=== PATIENT | female | born 1975 | race Caucasian/White ===

== ENCOUNTER 2017-08-15 12:00 | Emergency (ER) | payer BC ==
[~2017-08-15] VITALS: Ht 154.9 cm; Wt 77.1 kg
[2017-08-15] MEDS ORDERED: ENAL10TA PO (12:16)
[2017-08-15] MEDS ORDERED: LABE200T PO (12:16)
--- NOTE | 2017-08-15 12:35 | NUR ---
PT IS IN THE ROOM #1B. DR CARMONA EVALAUTED THE PT.
[2017-08-15 12:43] LABS: BASOPHILS # (AUTO) 0.1 K/uL (0.0-8.0); BASOPHILS % (AUTO) 0.8 % (0.0-2.0); EOSINOPHILS # (AUTO) 0.2 K/uL (0.0-0.7); EOSINOPHILS % (AUTO) 2.2 % (0.0-7.0); HEMATOCRIT 39.7 % (31.2-41.9); HEMOGLOBIN 13.5 g/dL (10.9-14.3); LYMPHOCYTES % (AUTO) 35.3 % (20.5-51.5); MEAN CORPUSCULAR HEMOGLOBIN 28.8 uug (24.7-32.8); MEAN CORPUSCULAR HGB CONC 34 g/dL (32.3-35.6); MONOCYTES # (AUTO) 0.3 K/uL (2.0-10.0); MONOCYTES % (AUTO) 3.9 % (0.0-11.0); NEUTROPHILS # (AUTO) 4.9 K/uL (1.8-8.9); NEUTROPHILS % (AUTO) 57.8 % (38.5-71.5); PLATELET COUNT (AUTO) 245 K/uL (179-408); RED BLOOD CELL COUNT(AUTO) 4.67 MIL/uL (3.63-4.92); WHITE BLOOD COUNT (AUTO) 8.5 K/uL (3.8-11.8)
[2017-08-15 12:50] LABS: CREATININE 0.7 mg/dL (0.6-1.3)
[2017-08-15 12:56] LABS: BILIRUBIN,DIRECT 0.1 mg/dL (0.0-0.2); BILIRUBIN,TOTAL 0.5 mg/dL (0.2-1.0); TOTAL PROTEIN, SERUM 7.2 g/dL (6.4-8.2)
[2017-08-15 13:35] VITALS: BP 125/76
--- NOTE | 2017-08-15 13:35 | NUR ---
PT WAS D/C TO HOME. D/C INSTRUCTIONS GIVEN TO THE PT.
== END 2017-08-15 13:36 | disposition home or self-care (01) ==
LOC: ER 12:04
DX: R55 Syncope and collapse (principal); I10 Essential (primary) hypertension; I49.9 Cardiac arrhythmia, unspecified; R41.3 Other amnesia
CPT/HCPCS: 36415; 71010; 80048; 80076; 84484; 85025; 93005; 99285; A4663; 70030-TC

== ENCOUNTER 2017-10-20 02:05 | Emergency (ER) | payer BC ==
[~2017-10-20] VITALS: Ht 154.9 cm; Wt 77.1 kg
[~2017-10-20 02:05] MED LIST: ENAL10TA PO; LABE200T PO
--- NOTE | 2017-10-20 02:26 | NUR ---
Dr. Lockhart at bedside for MSE.
[2017-10-20] MEDS ORDERED: ALBUTEROL SULFATE 2.5 MG/3 ML NEBU NEB ONE (02:30)
[2017-10-20] MEDS ORDERED: ALBUTEROL SULFATE 2.5 MG/3 ML NEBU ONE (02:54)
[2017-10-20] MEDS ORDERED: PANTOPRAZOLE SODIUM 40 MG TABLET.DR PO ONE ×2 (03:00→03:17)
[2017-10-20] MEDS ORDERED: MAG HYDROX/AL HYDROX/SIMETH 30 ML LIQUID UDC PO ONE (03:00)
--- NOTE | 2017-10-20 03:11 | NUR ---
Pt c/o chest burning, pt medicated for discomfort, will monitor for effects of medication. EKG obtained and given to MD. Pt resting in position of comfort for self. No complaints at this time.
[2017-10-20] MEDS ORDERED: MAG HYDROX/AL HYDROX/SIMETH 30 ML LIQUID UDC ONE (03:17)
--- NOTE | 2017-10-20 04:26 | NUR ---
Pt stable for discharge per MD. Pt given ACI. Pt verbalized understanding of dc instructions. Pt ambulated out of ER with steady gait,
[2017-10-20 04:28] VITALS: BP 110/62
== END 2017-10-20 04:29 | disposition home or self-care (01) ==
LOC: ER 02:05
DX: J20.8 Acute bronchitis due to other specified organisms (principal); I10 Essential (primary) hypertension; M54.9 Dorsalgia, unspecified
CPT/HCPCS: 71045; 93005; A4663

== ENCOUNTER 2018-03-23 11:38 | Emergency (ER) | payer BC ==
[~2018-03-23] VITALS: Ht 154.9 cm; Wt 77.1 kg
--- NOTE | 2018-03-23 12:08 | NUR ---
PATIENT WAS SEEN BY DR POTTS FOR C/O PAIN. DC, RX (INCLUDING PRECAUTIONS) AND FOLLOW UP INSTRUCTIONS GIVEN AND EXPLAINED TO PATIENT WHO STATES SHE UNDERSTANDS ALL INSTRUCTIONS.
== END 2018-03-23 12:11 | disposition home or self-care (01) ==
LOC: ER 11:40
DX: M54.12 Radiculopathy, cervical region (principal); I10 Essential (primary) hypertension; Z79.899 Other long term (current) drug therapy
CPT/HCPCS: 99283; A4663

== ENCOUNTER 2018-06-04 09:27 | Emergency (ER) | payer BC ==
[~2018-06-04] VITALS: Ht 154.9 cm; Wt 77.1 kg
[~2018-06-04 09:27] MED LIST changes: -LABE200T PO; +LABE200T5 PO
[2018-06-04] MEDS ORDERED: ONDANSETRON 4 MG/2 ML VIAL ONE ×3 (10:02→13:31)
[2018-06-04] MEDS: IV NORMAL SALINE 1000 ML BAG IV ONE (10:03)
[2018-06-04] MEDS: ONDANSETRON 4 MG/2 ML VIAL IV ONE ×2 (10:03→14:38)
[2018-06-04 10:14] LABS: BASOPHILS % (AUTO) 0.3 % (0.0-2.0); HEMATOCRIT 42.4 % (31.2-41.9); HEMOGLOBIN 14.6 g/dL (10.9-14.3); LYMPHOCYTES # (AUTO) 0.7 K/uL (20.0-40.0); LYMPHOCYTES % (AUTO) 6.8 % (20.5-51.5); MEAN CORPUSCULAR HEMOGLOBIN 28.7 uug (24.7-32.8); MEAN CORPUSCULAR HGB CONC 34 g/dL (32.3-35.6); MEAN CORPUSCULAR VOLUME 83.2 fL (75.5-95.3); MONOCYTES # (AUTO) 0.1 K/uL (2.0-10.0); MONOCYTES % (AUTO) 1.4 % (0.0-11.0); NEUTROPHILS # (AUTO) 8.8 K/uL (1.8-8.9); NEUTROPHILS % (AUTO) 91.5 % (38.5-71.5); PLATELET COUNT (AUTO) 263 K/uL (179-408); RED BLOOD CELL COUNT(AUTO) 5.09 MIL/uL (3.63-4.92); WHITE BLOOD COUNT (AUTO) 9.6 K/uL (3.8-11.8)
[2018-06-04 10:20] LABS: CREATININE 0.7 mg/dL (0.6-1.3); POTASSIUM 3.2 mmol/L (3.5-5.1)
[2018-06-04 10:31] LABS: BILIRUBIN,DIRECT 0.1 mg/dL (0.0-0.2); BILIRUBIN,TOTAL 0.7 mg/dL (0.2-1.0); TOTAL PROTEIN, SERUM 7.6 g/dL (6.4-8.2)
[2018-06-04] MEDS: ONDANSETRON IV *ER 4 MG/2 ML VIAL IV ONE (11:58)
[2018-06-04] MEDS ORDERED: PROCHLORPERAZINE EDISYLATE 10 MG/2 ML VIAL ONE (13:27)
[2018-06-04] MEDS: IV NORMAL SALINE 500 ML BAG IV ONE (13:29)
[2018-06-04] MEDS: PROCHLORPERAZINE EDISYLATE 10 MG/2 ML VIAL IV ONE (13:29)
[2018-06-04 13:52] LABS: *BILIRUBIN,URIN NEGATIVE (NEGATIVE); *BLOOD, URINE 2+ (NEGATIVE); *CLARITY,URINE SLIGHTLY CLOUDY (CLEAR); *COLOR,URINE YELLOW (YELLOW); *KETONES,URINE NEGATIVE (NEGATIVE); *PROTEIN,URINE NEGATIVE (NEGATIVE); *UROBILINOGEN,URINE 0.2 E.U./dl (NORMAL); LEUKOCYTE ESTERASE ,URINE NEGATIVE (NEGATIVE); NITRITE, URINE NEGATIVE (NEGATIVE); PH,URINE 6.5 (5.0-8.0); UGLUCOSE NEGATIVE (NEGATIVE)
[2018-06-04 14:15] LABS: RBC,URINE 50-80 /HPF (0-3)
[2018-06-04 14:16] LABS: BACTERIA,URINE NONE SEEN /HPF (NONE SEEN); SQUAMOUS EPITHELIAL CELL,UR MODERATE /HPF (NONE SEEN); WBC,URINE 0-3 /HPF (0-3)
[2018-06-04] MEDS ORDERED: POTASSIUM BICARBONATE/CIT AC 25 MEQ TABLET.EFF ONE (14:16)
[2018-06-04] MEDS: POTASSIUM BICARBONATE/CIT AC 25 MEQ TABLET.EFF PO ONE (14:38)
--- NOTE | 2018-06-04 14:53 | NUR ---
Patient discharged to home in stable conditon. Written and verbal after care instructions given. Patient verbalizes understanding of instructions.PT WALKS IN STEADY GAIT. PT NOT DRIVING.
[2018-06-04 14:55] VITALS: BP 119/79
== END 2018-06-04 15:10 | disposition home or self-care (01) ==
LOC: ER 09:27
DX: R11.2 Nausea with vomiting, unspecified (principal); E87.6 Hypokalemia; R31.29 Other microscopic hematuria; I10 Essential (primary) hypertension
CPT/HCPCS: 36415; 74021; 83605; 83690; 85025; 87086; A4663; J0780; J2405; J7030